=== PATIENT | male | born 1970 | race Caucasian/White ===

== ENCOUNTER 2019-12-09 13:07 | Day surgery (SDC) | payer MEDICAID ==
[~2019-12-09] VITALS: Ht 177.8 cm; Wt 95.9 kg
[~2019-12-09 13:07] MED LIST: SODIUM CHLORIDE 0.9% 1,000 ML IV ONE; SODIUM CHLORIDE 0.9% 1,000 ML ONE
== END 2019-12-09 17:35 | disposition home or self-care (01) ==
LOC: SURGERY 13:07
PROVIDERS: ATTEND Internal Medicine Gastroenterology
DX: R19.4 Change in bowel habit (principal); K57.30 Diverticulosis of large intestine without perforation or abscess without bleeding; K64.0 First degree hemorrhoids
CPT/HCPCS: 45378; J7030